=== PATIENT | female | born 1945 | race Caucasian/White ===

== ENCOUNTER 2020-10-02 11:31 | Outpatient (REF) | payer MEDICARE, SELFPAY ==
[2020-10-02 12:55] LABS: Abs Immature Grans 0.01 10^3/uL (0.0-0.06); Absolute Basophil Count 0.03 10^3/uL (0.0-0.2); Absolute Eosinophil Count 0.17 10^3/uL (0.0-0.7); Absolute Lymphocyte Count 1.38 10^3/uL (1.2-3.4); Absolute Monocyte Count 0.73 10^3/uL (0.1-0.8); Absolute Neutrophil Count 2.88 10^3/uL (1.2-6.7); Basophils % 0.6; Eosinophils % 3.3; HGB 15.3 g/dL (11.2-15.7); Immature Grans % 0.2; Lymphocytes % 26.5; MCH 30.8 pg (27.0-33.0); MCHC 33.3 % (32.0-36.0); MCV 92.6 fL (80-95); Neutrophils % 55.4; Nucleated RBC 0 %; Platelet Count 247 10^3/uL (130-400); RBC 4.97 10^6/uL (3.93-5.22); RDW-SD 41.1 fL
[2020-10-02 13:19] LABS: ALT 42 U/L (14-59); AST 26 U/L (15-37); Albumin 3.8 g/dL (3.4-5.0); Alkaline Phosphatase 80 U/L (46-116); Anion Gap 5.6 mmol/L (3-11); BUN 16 mg/dL (7-18); Bilirubin, Total 0.6 mg/dL (0.2-1.0); CO2 25.4 mmol/L (21.0-32.0); CREATININE 0.8 mg/dL (0.55-1.02); Calculated LDL 161 mg/dL (<100); Chloride 102 mmol/L (98-107); Cholesterol 239 mg/dL (<200); Glucose 111 mg/dL (74-106); HDL Cholesterol 57 mg/dL (40-60); Sodium 133 mmol/L (136-145); Total Protein 7.2 g/dL (6.4-8.2); Triglyceride 106 mg/dL (<150)
== END 2020-10-02 11:32 | disposition home or self-care (01) ==
LOC: NCHCN 11:31
PROVIDERS: PCP Nurse Practitioner Family; Visit Provider Nurse Practitioner Family
DX: R73.9 Hyperglycemia, unspecified (principal); E78.00 Pure hypercholesterolemia, unspecified; Z85.3 Personal history of malignant neoplasm of breast
CPT/HCPCS: 80053; 80061; 85025

== ENCOUNTER 2020-10-05 16:22 | Outpatient (REF) | payer MEDICARE, SELFPAY ==
[2020-10-05 13:56] LABS: Vitamin D 25 Total 90.9 ng/ml (30-100)
== END 2020-10-05 16:23 | disposition home or self-care (01) ==
LOC: NCHCN 16:22
PROVIDERS: PCP Nurse Practitioner Family; Visit Provider Nurse Practitioner Family
DX: Z00.00 Encounter for general adult medical examination without abnormal findings (principal); Z13.21 Encounter for screening for nutritional disorder
CPT/HCPCS: 82306

== ENCOUNTER 2022-06-14 13:49 | Outpatient (REF) | payer MEDICARE, SELFPAY ==
[2022-06-14 21:45] LABS: Hemoglobin A1C 5.7 % (<5.7)
[2022-06-14 21:52] LABS: ALT 31 U/L (14-59); AST 29 U/L (15-37); Albumin 4.2 g/dL (3.4-5.0); Alkaline Phosphatase 81 U/L (46-116); Anion Gap 9.8 mmol/L (3-11); BUN 11 mg/dL (7-18); Bilirubin, Total 0.6 mg/dL (0.2-1.0); CO2 25.2 mmol/L (21.0-32.0); CREATININE 0.8 mg/dL (0.55-1.02); Calcium 9.3 mg/dL (8.5-10.1); Calculated LDL 214 mg/dL (<100); Chloride 103 mmol/L (98-107); Cholesterol 303 mg/dL (<200); Estimated GFR 77.27 (mL/min/1.73m2); Glucose 101 mg/dL (74-106); HDL Cholesterol 71 mg/dL (40-60); Sodium 138 mmol/L (136-145); Total Protein 7.9 g/dL (6.4-8.2); Triglyceride 94 mg/dL (<150)
== END 2022-06-14 13:50 | disposition home or self-care (01) ==
LOC: NCHCN 13:49
PROVIDERS: PCP Nurse Practitioner Family; Visit Provider Nurse Practitioner Family
DX: Z00.00 Encounter for general adult medical examination without abnormal findings (principal)
CPT/HCPCS: 80053; 80061; 83036

== ENCOUNTER 2022-06-23 11:36 | Outpatient (REF) | payer MEDICARE, SELFPAY ==
--- OUTSIDE RECORDS SUMMARY | 2022-06-23 12:11 | XMS_ITS | CCD ---
:1945 Author Care Team Providers Name Role Phone ALESSANDRA GOLD Attending Physician Unavailable ALESSANDRA GOLD Rounding (Secondary) Physician Unavailab le Vital Signs Unknown or Not Available. Allergies Allergy Code Allergy Type Reaction Status OXYCODONE 7804 Drug allergy ITCHING Active PHENERGAN 416707 Drug allergy ITCHING; PROMETHAZINE Active Procedures Unknown or Not Available. History of Immunizations Unknown or Not Available. Problems Unknown or Not Available. Results Unknown or Not Available. Active Medications Unknown or Not Available. Medications Administered During Visit Unknown or Not Available. Encounters Encounter Diagnosis Diagnosis Code Start Date Hip joint prosthesis present [id number] 10/11/2021 Social History Smoking Status Code Start Date End Date Never smoker [id number] Patient Decision Aids Unknown or Not Available. Discharge Instructions You were admitted to [facility] on 10/11/2021 13:04 with a principal diagnosis of Presence of left artificial hip joint You were discharged from [facility] on 10/11/2021 00:00 Should you have any questions prior to d ischarge, please contact a member of your healthcare team. If you have left the ho spital and have any questions, please contact your primary care physician. Chief Complaint and Reason For Visit Unknown or Not Available. Function Status Unknown or Not Available. Plan of Care Unknown or Not Available. Referral/Transition of Care Unknown or Not Available.
[2022-06-23 14:29] LABS: Absolute Basophil Count 0.04 10^3/uL (0.0-0.2); Absolute Eosinophil Count 0.15 10^3/uL (0.0-0.7); Absolute Lymphocyte Count 1.48 10^3/uL (1.2-3.4); Absolute Monocyte Count 0.57 10^3/uL (0.1-0.8); Absolute Neutrophil Count 3.58 10^3/uL (1.2-6.7); Basophils % 0.7; Eosinophils % 2.6; HCT 43.3 % (36.0-46.0); HGB 14.3 g/dL (11.2-15.7); Immature Grans % 0.3; Lymphocytes % 25.3; MCH 30.4 pg (27.0-33.0); MCV 92 fL (80-95); MPV 9.7 fL (8.0-11.0); Monocytes % 9.8; Neutrophils % 61.3; Platelet Count 319 10^3/uL (130-400); RDW 12.1 % (11.7-14.6); WBC 5.84 10^3/uL (4.4-10.8)
[2022-06-23 14:30] LABS: Abs Immature Grans 0.02 10^3/uL (0.0-0.06)
[2022-06-23 15:35] LABS: TSH (W/Ref FT4) 1.49 uIU/mL (0.36-3.74)
== END 2022-06-23 11:37 | disposition home or self-care (01) ==
LOC: NCHCN 11:36
PROVIDERS: PCP Nurse Practitioner Family; Visit Provider Nurse Practitioner Family
DX: E78.00 Pure hypercholesterolemia, unspecified (principal); Z00.00 Encounter for general adult medical examination without abnormal findings
CPT/HCPCS: 82306; 84443; 85025

== ENCOUNTER 2024-06-24 18:52 | Outpatient (REF) | payer MEDICARE, SELFPAY ==
--- NOTE | 2024-06-24 16:30 | SKI_PTH ---
PATIENT: Jeannine Hawk LOC: [facility] U#:[id number] AGE/SX: 78/F ROOM: RE06/24/[address]: Ramandeep Higgins : 1945 BED: DIS: 06/24/2024 SPEC #: [id number] RECD: 06/25/24 12:20 STATUS: JOEY REQ #: [id number] JENISE: 06/24/24 16:[address]: Ramandeep Higgins DEPT: Surgical Specimen RECD BY: Flora Gooden ENTERED: 06/25/24 12:20 SP TYPE: PHYLLIS MORELOS DR: Leeanna Salcedo Tissues: 1 - SKIN BIOPSY(SHAVE/PUNCH) Procedures: SKIN LEVEL 4 Comments: [id number]
== END 2024-06-24 18:53 | disposition home or self-care (01) ==
LOC: NCHCN 18:52
PROVIDERS: PCP Nurse Practitioner Family; Visit Provider Nurse Practitioner Family
DX: L57.0 Actinic keratosis (principal)
CPT/HCPCS: 88305

== ENCOUNTER → 2024-08-29 09:58 | Outpatient (BNVA) | payer MEDICARE, SELFPAY | PROVIDERS: PCP Nurse Practitioner Family; Referring Provider Nurse Practitioner Family; Visit Provider Physical Therapy Assistant | DX: Z12.11 Encounter for screening for malignant neoplasm of colon (principal) ==

== ENCOUNTER 2024-09-16 07:30 | Day surgery (SDC) | payer MEDICARE, SELFPAY ==
--- NOTE | 2024-09-15 06:12 | PDOC.DSDIS_ITS ---
Date of service: 09/16/24 Discharge Plan Disposition Patient Disposition: Home Condition: Good Discharge Details Reason For Visit: screening colonoscopy Attending Provider: Marco A Forrester Primary Care Provider: Ramandeep Higgins Home Meds and New Rx's Prescriptions: Discontinued bisacodyl [Dulcolax (bisacodyl)] 5 mg tablet,delayed release (DR/EC) 5 mg PO ONCE Qty: 4 0RF Rx Instructions: Take per colonoscopy instructions provided by ordering providers office polyethylene glycol 3350 17 gram/dose powder 17 g PO ONCE Qty: 238 0RF Rx Instructions: Take per colonoscopy instructions provided by ordering providers office Discharge Instructions Instructions: Diverticulosis Additional Instructions: Jeannine, It was great meeting you today, and I hope you feel well after the procedure. Everything went very smoothly. Your prep was excellent and I could see everything fine. I did not find any tumors or polyps today. Incidentally, you do have quite a bit of diverticulosis. Diverticula are little weak spots in the muscular layer of the colon. This causes the inside lining also known as the mucosa to pooch or pocket outwards through the wall. These individual pockets are called diverticula and the condition of having them is referred to as divert iculosis. Some patients will get infections, or inflammation of these. That is known as diverticulitis. Hopefully, years never bother you. I did attach a little bit of information here about typical approaches to diverticular disease. But my general recommendation is that patient stay well-hydrated with plenty of free water, eat lots of dietary fiber, targeting approximately 20 to 30 g of fib er per day, and avoid symptoms of constipation. As we discussed before hand, with your family history, 5-year interval for screening colonoscopies is probably most appropriate. If you need anything else, please do not hesitate to ask. 1. If tolerated, consume a soft, low fiber diet for 1-2 days. 2[address] Do not drive, drink alcohol, operate machinery, make critical decisions, or do activities that require coordination or balance for 24 hours. 3. Because air was put into your colon during the procedure, expelling air from your rectum (passing gas or farting) is normal. 4. You may not have a bowel movement for 1-3 days because of the colonoscopy prep. This is normal. 5. Go directly to the emergency room if you notice any of the following: Develop chills (warm to touch), or if you have a thermometer and your temperature is above 101 Difficulty breathing or difficultly swallowing Persistent vomiting Severe abdominal pain, other than gas cramps Severe chest pain Black, tarry stools Any bleeding ? exceeding one tablespoon 6. Call your physician if the site where your intravenous was started becomes red, swollen, painful, and warm to touch. 7. Your physician has reviewed your pre-procedure medications. Please continue to take those medications as previously ordered. You will be given specific information/education regarding any changes to your medications before leaving. Activity:: Activity as Tolerated Diet:: As Tolerated Discharge Orders Discharge Orders: Discharge Order (Routine); Ordered 09/15/24 Ordered By: Marco A Forrester DS: Diagnosis Discharge Diagnosis (1) Encounter for screening colonoscopy: Status: Acute Asessment and Plan: Diverticulosis, otherwise negative screening colonoscopy today. With family history, recommend a 5-year interval for next screening colonoscopy
--- NOTE | 2024-09-15 06:13 | W.COLOREPORT ---
Date of service: 09/16/24 Time of Service: 09:33 Colonoscopy Report Date of procedure: 09/16/24 Pre-op diagnosis general: screening colonoscopy Post-op diagnosis procedure note: other (Diverticulosis) Procedure: colonoscopy Surgeon: Marco A Forrester Anesthesia Type: General:No Airway Estimated blood loss (mL): 0 Pathology: none sent Complications: None Disposition: same day Indications: Jeannine is a 79 year old woman who needs her next screening colononoscopy Prep: Miralax/Dulcolax Procedure Start Time: 09:08 Procedure End Time: 09:21 Retraction Time: 9 Findings: Pandiverticulosis Procedure Description: After the induction of anesthesia, and with Jeannine in left lateral decubitus position, I began by performing an external anorectal exam.? Perineum and skin were normal, as was the anal verge.? There was no evidence of external hemorrhoids.? Next, I performed a digital rectal exam.? I did not appreciate any abnormal findings.? Next, I advanced a colonoscope into the rectal vault.? I performed retroflexion.? This appeared normal.? Using insufflation, I then advanced the colonoscope beyond the rectal folds and into the sigmoid colon before advancing towards the cecum.? There is diverticulosis involving all sections of the colon. Great care was taken to make sure that the true lumen was maintained throughout the advancing of the colonoscope. the scope was noted to be in the cecum by identification of the ileocecal valve and appendiceal orifice.? I then began withdrawing the colonoscope using repeated irrigation as necessary for full evaluation of the colonic mucosa. ?Once the scope was withdrawn to the level of the rectum, great care was taken to examine portions of the rectal folds.? Aside from the diverticula mentioned previously, I saw no other signs of any pathology. Finally, the scope was withdrawn and the patient was brought to the same-day surgery recovery unit as the anesthetic wore off. ?The findings and instructions were shared with the patient prior to discharge. [place] Bowel Prep [place] Bowel Prep Right Colon: 3 Left Colon: 3 Transverse Colon: 3 Total Score: 9
[2024-09-16 07:42] VITALS: BP 149/84; PULSE 69; RESP 16; TEMP 36.2; O2SAT 97
[2024-09-16] MEDS: Lactated Ringers 1,000 ML 80 ML IV (08:00)
--- NOTE | 2024-09-16 08:59 | ANES.PREOP_ITS ---
General Info Date of Service Date Performed: 09/16/24 Height: 5 ft 3 in Weight: 80.6 kg Body Mass Index (BMI): 31.4 Surgical Procedure: Operation Date: 09/16/24 09:05 Proposed Procedure Side Surgeon p Colonoscopy Marco A Forrester MD Actual Procedure Side Surgeon p Colonoscopy Not Applicable Marco A Forrester MD Meds Allergies and Home Medications Allergies Allergy/AdvReac Type Severity Reaction Status Date / Time promethazine (From Phenergan) Allergy Unknown Other (See Verified 09/16/24 07:48 Comment) Current Visit Medications: Current Medications Generic Name Dose Route Start Last Admin Trade Name Freq PRN Reason Stop Dose Admin Ringer's Solution 1,000 mls @ 80 mls/hr 09/16/24 06:00 09/16/24 08:00 IV 09/16/24 23:59 80 mls/hr INFUSION IDANIA Administration IV Miscellaneous Supplies 1 each 09/16/24 06:00 Iv Access IV 09/16/24 23:59 DIRECTED IDANIA Ondansetron HCl 4 mg 09/15/24 06:15 Ondansetron 4 Mg/2 Ml Vial IVP 10/15/24 06:14 Q4H PRN PRN Nausea / Vomiting Sodium Chloride 0 ml 09/16/24 06:00 Normal Saline Flush 10 Ml Syr IV 09/16/24 23:59 PRN PRN Sodium Chloride 0 ml 09/16/24 06:00 Normal Saline 10 Ml Vial IJ 09/16/24 23:59 DIRECTED PRN Sterile Water 0 ml 09/16/24 06:00 Water,Injection,Sterile 10 Ml Vial IJ 09/16/24 23:59 DIRECTED PRN PFSH Active Problems Active Problems: Problem Status Onset Code Encounter for screening colonoscopy Acute Z12.11 Medical History Medical History Family history of colon cancer in father Age 78 History of breast cancer per referral [facility]/[place] pos HER2 neg Pain of left hip joint History of colon polyps Breast cancer, right mastectomy and lymph node dissection, not treated w/ chemo/radiation Cataract Adjustment disorder Pure hypercholesterolemia Surgical History Surgical History History of total left hip replacement History of colonoscopy (~05/23/19) Done at [place], [place] repeat 5 yrs H/O right mastectomy (~2012) History of breast cancer treated with unilateral mastectomy and lymph node excision October 2012. Tobacco Smoking/Tobacco Use Status: Former Tobacco Use Alcohol Alcohol Intake: current Alcohol intake frequency: 0-2 drinks per day Alcohol type: wine Substance Use Substance use: Never Substance use type: does not use Details: alcohol: t-2, 3/4 cup Vital Signs and Lab Results Vital Signs Most Recent Vital Signs in EMR: Most Recent Vital Signs Temp Pulse Resp BP Pulse Ox 36.2 C L 69 16 149/84 H 97 09/16/24 07:42 09/16/24 07:42 09/16/24 07:42 09/16/24 07:42 09/16/24 07:42 Lab Results Blood Type / Crossmatch: No Data to Display Complete Blood Count: No Data to Display Complete Metabolic Panel: No Data to Display Liver Function Panel: No Data to Display Coagulation Panel: No Data to Display Cardiac Panel: No Data to Display Arterial Blood Gas: No Data to Display Venous Blood Gas: No Data to Display Pancreas Panel: No Data to Display Thyroid Panel: No Data to Display Infectious Disease: No Data to Display Blood Cultures: No Data to Display Toxicology Panel: No Data to Display Anesthesia Assessment and Plan Anesthesia History Personal History: No History of Anesthesia Complications Family History: No Family History of Anesthesia Complications Exercise Tolerance Exercise Tolerance: Metabolic Equivalents>4 Pertinent Negatives Pertinent Negatives: No Symptoms of GERD Cardiac & Pulmonary Exam Cardiac Exam: Normal S1/S2 Heart Sounds Pulmonary Exam: Clear Bilateral Breath Sounds Implantable Cardiac Device Does patient have a Pacemaker or an ICD?: No Airway Exam Known Difficult Airway: No Mallampati Class: 2 Mouth Opening: Normal (> 3cm) Thyromental Distance: Greater than 3 cm Neck Range of Motion: Full ROM Neck Circumference: Normal Teeth Condition: Normal Dentition ASA Classification ASA Score: ASA 2 Emergency Case?: No NPO Status NPO Status: NPO Clears >2 hours, Solids >8 hours Anesthesia Plan Resuscitation Status: Full Code Anesthesia Technique: General Anesthesia Airway Planned: Natural Airway Monitors Used: Standard Monitors
[2024-09-16 09:00] VITALS: BMI 31.4
[2024-09-16 09:26] VITALS: BP 102/69; PULSE 83; RESP 18; TEMP 36.2; O2SAT 96
--- NOTE | 2024-09-16 09:57 | W.ANESPOSTOP ---
Postoperative Evaluation Date, Time and Location Date Performed: 09/16/24 Time Performed: : Patient Location: Day Surgery Unit Vital Signs Most Recent Imported Vital Signs: Most Recent Vital Signs Temp Pulse Resp BP Pulse Ox 36.2 C L 83 18 102/69 96 09/16/24 09:26 09/16/24 09:26 09/16/24 09:26 09/16/24 09:26 09/16/24 09:26 Pain Score Most Recent Pain Score: Most Recent Pain Score Pain Level 0 09/16/24 09:26 Assessment Mental Status: Awake (Alert & Oriented to Patient Baseline) Airway and Respiratory Function: Patent airway with normal (patient baseline) respiratory exam Cardiovascular Function: Hemodynamically Stable Hydration Status: Adequately Hydrated Nausea & Vomiting: No Nausea or Vomiting Pain: Pt. Denies Any Pain Peripheral Nerve Block: Patient did not receive a nerve block
== END 2024-09-16 10:07 | disposition home or self-care (01) ==
LOC: SUR 07:31
PROVIDERS: PCP Nurse Practitioner Family; Visit Provider Surgery
PROC: 0DJD8ZZ Inspection of Lower Intestinal Tract, Via Natural or Artificial Opening Endoscopic (ICD-10-PCS; CPT 45378; principal; 2024-09-16 09:00)
DX: Z12.11 Encounter for screening for malignant neoplasm of colon (principal); K57.30 Diverticulosis of large intestine without perforation or abscess without bleeding
CPT/HCPCS: G0121; J2003; J2704

== ENCOUNTER 2025-07-09 18:16 | Outpatient (REF) | payer MEDICARE, SELFPAY ==
[2025-07-09 21:05] LABS: Anion Gap 8.6 mmol/L (3-11); BUN 15 mg/dL (9-23); CO2 27.4 mmol/L (20.0-31.0); Calcium 8.9 mg/dL (8.3-10.6); Chloride 106 mmol/L (98-107); Cholesterol 282 mg/dL (<200); Glucose 89 mg/dL (74-106); HDL Cholesterol 65 mg/dL (>40); Potassium 4.1 mmol/L (3.5-5.1); Sodium 142 mmol/L (136-145)
== END 2025-07-09 18:17 | disposition home or self-care (01) ==
LOC: NCHCN 18:16
PROVIDERS: PCP Nurse Practitioner Family; Visit Provider Nurse Practitioner Family
DX: Z13.220 Encounter for screening for lipoid disorders (principal)
CPT/HCPCS: 80048; 80061